=== PATIENT | male | born 1960 | race Native Hawaiian/Other Pacific Islander ===

== ENCOUNTER 2017-06-26 15:30 | Inpatient (IN) | payer OTHER ==
[~2017-06-26] VITALS: Ht 162.6 cm; Wt 69.4 kg
[2017-06-26 15:45] VITALS: BP 145/81
[2017-06-26] MEDS ORDERED: ACETAMINOPHEN 325 MG TABLET PO PRN (16:15)
[2017-06-26] MEDS ORDERED: METHOCARBAMOL 500 MG TABLET PO PRN (16:15)
[2017-06-26] MEDS ORDERED: TEMAZEPAM 15 MG CAPSULE PO PRN (16:15)
[2017-06-26 16:20] VITALS: BP 145/91
[2017-06-26] MEDS ORDERED: INFLUENZA VIRUS VACCINE QVS 2017-18 (3YR+)/PF 60 MCG/0.5 ML SYRINGE IM ONE (16:45)
[2017-06-26] MEDS: INSULIN ASPART 100 UNITS/ML SQ SCH (18:05)
[2017-06-26 18:17] LABS: GLUCOSE,POINT OF CARE 135 MG/DL (70-110)
[2017-06-26] MEDS: SENNA 187 MG TABLET PO SCH (20:12)
[2017-06-26] MEDS: DOCUSATE SODIUM 100 MG CAPSULE PO SCH (20:12)
[2017-06-26 22:45] LABS: APPEARANCE,URINE CLOUDY (CLEAR); GLUCOSE, URINE (UA) NEGATIVE (NEGATIVE); KETONES,URINE NEGATIVE (NEGATIVE); LEUKOCYTE ESTERASE ,URINE NEGATIVE (NEGATIVE); OCCULT BLOOD,URINE NEGATIVE (NEGATIVE); PH,URINE 6.5 (5.0-8.0); PROTEIN,URINE NEGATIVE (NEGATIVE)
[2017-06-26 22:50] LABS: SQUAMOUS EPITHELIAL CELL,UR Few /LPF (None Seen)
[2017-06-26 22:51] LABS: RBC,URINE 0-2 /HPF (0-2)
[2017-06-26 23:30] VITALS: BP 128/76
[2017-06-27 03:42] LABS: GLUCOSE,POINT OF CARE 169 MG/DL (70-110)
[2017-06-27 05:58] LABS: GLUCOSE,POINT OF CARE 109 MG/DL (70-110)
[2017-06-27 06:15] LABS: BASOPHILS # (AUTO) 0.05 K/uL (0.00-0.20); BASOPHILS % (AUTO) 0.5 % (0.0-2.0); EOSINOPHILS # (AUTO) 0.33 K/uL (0.00-0.70); EOSINOPHILS % (AUTO) 3.33 % (1.0-6.0); HEMATOCRIT 42.1 % (41-53); HEMOGLOBIN 14.6 g/dL (13.5-17.5); LYMPHOCYTES # (AUTO) 2.8 K/uL (1.0-4.8); LYMPHOCYTES % (AUTO) 28.8 % (22.0-44.0); MEAN CORPUSCULAR HEMOGLOBIN 29.8 pg (26.0-34.0); MEAN CORPUSCULAR HGB CONC 34.6 G/dL (31.0-37.0); MEAN CORPUSCULAR VOLUME 86 fL (80-100); MONOCYTES # (AUTO) 0.7 K/uL (0.1-1.0); MONOCYTES % (AUTO) 7.6 % (2.0-9.0); NEUTROPHILS # (AUTO) 5.9 K/uL (1.8-7.7); NEUTROPHILS % (AUTO) 59.8 % (40.0-70.0); PLATELET COUNT (AUTO) 253 K/uL (150-450); RED BLOOD CELL COUNT(AUTO) 4.88 MIL/uL (4.50-5.90); RED CELL DISTRIBUTION WIDTH 13.3 % (11.5-14.5); WHITE BLOOD COUNT (AUTO) 9.8 K/uL (4.5-11.0)
[2017-06-27 06:33] LABS: ALANINE AMINOTRANSFERASE 43 U/L (12-78); ALBUMIN 3.3 g/dL (3.4-5.0); ANION GAP 8 mmol/L (8-16); ASPARTATE AMINOTRANSFERASE 23 U/L (15-37); BILIRUBIN,TOTAL 0.6 mg/dL (0.1-1.0); CALCIUM, TOTAL 8.8 mg/dL (8.8-10.5); CARBON DIOXIDE 26 mmol/L (22-29); CHLORIDE 104 mmol/L (98-107); CREATININE 0.88 mg/dL (0.60-1.30); GLOMERULAR FILTR. RATE CALC > 60 mL/min (>60); POTASSIUM 3.7 mmol/L (3.5-5.1); SODIUM SERUM 138 mmol/L (136-145); UREA NITROGEN, BLOOD 19 mg/dL (7-18)
[2017-06-27] MEDS: INSULIN ASPART 100 UNITS/ML SQ SCH ×3 (07:00→17:19)
[2017-06-27 08:25] VITALS: BP 127/73
[2017-06-27] MEDS: LOSARTAN POTASSIUM 25 MG TABLET PO SCH (09:37)
[2017-06-27] MEDS: ATORVASTATIN CALCIUM 40 MG TABLET PO SCH (09:37)
[2017-06-27] MEDS: CLOPIDOGREL BISULFATE 75 MG TABLET PO SCH (09:37)
[2017-06-27] MEDS: NORTRIPTYLINE HCL 25 MG CAPSULE PO SCH (09:37)
[2017-06-27] MEDS: OMEGA-3/DHA/EPA/FISH OIL 500 MG CAPSULE PO SCH (09:37)
[2017-06-27] MEDS: ASPIRIN 81 MG CHEWABLE TABLET PO SCH (09:38)
[2017-06-27] MEDS: DOCUSATE SODIUM 100 MG CAPSULE PO SCH ×2 (09:38→20:48)
[2017-06-27] MEDS: INSULIN DETEMIR 100 UNITS/ML SQ SCH (10:39)
[2017-06-27 11:20] VITALS: BP 129/84
[2017-06-27] MEDS: ACETAMINOPHEN 325 MG TABLET PO PRN (13:24)
[2017-06-27 15:35] VITALS: BP 128/76
[2017-06-27 17:38] LABS: GLUCOSE COMMENT 1 Received Meds; GLUCOSE,POINT OF CARE 217 MG/DL (70-110)
[2017-06-27 17:42] LABS: GLUCOSE,POINT OF CARE 191 MG/DL (70-110)
[2017-06-27] MEDS: SENNA 187 MG TABLET PO SCH (20:48)
[2017-06-27 21:37] LABS: GLUCOSE,POINT OF CARE 148 MG/DL (70-110)
[2017-06-28 05:41] LABS: GLUCOSE,POINT OF CARE 165 MG/DL (70-110)
[2017-06-28 06:00] VITALS: BP 122/76
[2017-06-28 08:14] VITALS: BP 136/81
[2017-06-28] MEDS: LOSARTAN POTASSIUM 25 MG TABLET PO SCH (08:29)
[2017-06-28] MEDS: OMEGA-3/DHA/EPA/FISH OIL 500 MG CAPSULE PO SCH (08:29)
[2017-06-28] MEDS: ATORVASTATIN CALCIUM 40 MG TABLET PO SCH (08:29)
[2017-06-28] MEDS: CLOPIDOGREL BISULFATE 75 MG TABLET PO SCH (08:29)
[2017-06-28] MEDS: DOCUSATE SODIUM 100 MG CAPSULE PO SCH ×2 (08:29→20:10)
[2017-06-28] MEDS: ASPIRIN 81 MG CHEWABLE TABLET PO SCH (08:29)
[2017-06-28] MEDS: ENOXAPARIN SODIUM 40 MG/0.4 ML PF SYRINGE SQ SCH (08:30)
[2017-06-28] MEDS: ESOMEPRAZOLE MAG TRIHYDRATE 20 MG CAPSULE PO SCH (08:31)
[2017-06-28] MEDS: NORTRIPTYLINE HCL 25 MG CAPSULE PO SCH ×3 (08:31→20:18)
[2017-06-28] MEDS: INSULIN DETEMIR 100 UNITS/ML SQ SCH (08:35)
[2017-06-28] MEDS: INSULIN ASPART 100 UNITS/ML SQ SCH ×3 (08:35→18:03)
[2017-06-28] MEDS: ACETAMINOPHEN 325 MG TABLET PO PRN (09:13)
[2017-06-28 13:27] LABS: GLUCOSE,POINT OF CARE 106 MG/DL (70-110)
[2017-06-28 16:08] VITALS: BP 115/77
[2017-06-28 18:17] LABS: GLUCOSE COMMENT 1 Received Meds; GLUCOSE,POINT OF CARE 150 MG/DL (70-110)
[2017-06-28] MEDS: SENNA 187 MG TABLET PO SCH (20:10)
[2017-06-28 22:32] LABS: GLUCOSE COMMENT 1 Received Meds; GLUCOSE,POINT OF CARE 155 MG/DL (70-110)
[2017-06-29 00:36] VITALS: BP 111/66
[2017-06-29 06:07] LABS: GLUCOSE,POINT OF CARE 123 MG/DL (70-110)
[2017-06-29 07:17] VITALS: BP 119/70
[2017-06-29] MEDS: ASPIRIN 81 MG CHEWABLE TABLET PO SCH (08:06)
[2017-06-29] MEDS: ESOMEPRAZOLE MAG TRIHYDRATE 20 MG CAPSULE PO SCH (08:06)
[2017-06-29] MEDS: OMEGA-3/DHA/EPA/FISH OIL 500 MG CAPSULE PO SCH (08:07)
[2017-06-29] MEDS: DOCUSATE SODIUM 100 MG CAPSULE PO SCH (08:07)
[2017-06-29] MEDS: CLOPIDOGREL BISULFATE 75 MG TABLET PO SCH (08:07)
[2017-06-29] MEDS: ENOXAPARIN SODIUM 40 MG/0.4 ML PF SYRINGE SQ SCH (08:07)
[2017-06-29] MEDS: LOSARTAN POTASSIUM 25 MG TABLET PO SCH (08:07)
[2017-06-29] MEDS: ATORVASTATIN CALCIUM 40 MG TABLET PO SCH (08:07)
[2017-06-29] MEDS: INSULIN ASPART 100 UNITS/ML SQ SCH ×3 (08:08→17:43)
[2017-06-29] MEDS: INSULIN DETEMIR 100 UNITS/ML SQ SCH (08:09)
[2017-06-29 12:37] LABS: GLUCOSE COMMENT 1 Repeated; GLUCOSE COMMENT 2 Received Meds; GLUCOSE,POINT OF CARE 213 MG/DL (70-110)
[2017-06-29 15:16] VITALS: BP 130/82
[2017-06-29 16:43] LABS: GLUCOSE COMMENT 1 Received Meds; GLUCOSE,POINT OF CARE 203 MG/DL (70-110)
[2017-06-29 17:37] LABS: GLUCOSE,POINT OF CARE 188 MG/DL (70-110)
[2017-06-29] MEDS: DOCUSATE SODIUM 283 MG/5 ML MINI-ENEMA PR PRN (20:01)
[2017-06-29] MEDS: SENNA 187 MG TABLET PO SCH (20:39)
[2017-06-29] MEDS: DOCUSATE SODIUM 250 MG CAPSULE PO SCH (20:39)
[2017-06-29] MEDS: NORTRIPTYLINE HCL 25 MG CAPSULE PO SCH (20:40)
[2017-06-29 21:52] LABS: GLUCOSE,POINT OF CARE 187 MG/DL (70-110)
[2017-06-30 00:33] VITALS: BP 132/81
[2017-06-30 07:39] VITALS: BP 107/76
[2017-06-30] MEDS: INSULIN ASPART 100 UNITS/ML SQ SCH ×3 (07:47→17:04)
[2017-06-30] MEDS: ASPIRIN 81 MG CHEWABLE TABLET PO SCH (08:05)
[2017-06-30] MEDS: LOSARTAN POTASSIUM 25 MG TABLET PO SCH (08:05)
[2017-06-30] MEDS: ATORVASTATIN CALCIUM 40 MG TABLET PO SCH (08:05)
[2017-06-30] MEDS: ESOMEPRAZOLE MAG TRIHYDRATE 20 MG CAPSULE PO SCH (08:05)
[2017-06-30] MEDS: OMEGA-3/DHA/EPA/FISH OIL 500 MG CAPSULE PO SCH (08:05)
[2017-06-30] MEDS: CLOPIDOGREL BISULFATE 75 MG TABLET PO SCH (08:05)
[2017-06-30] MEDS: ENOXAPARIN SODIUM 40 MG/0.4 ML PF SYRINGE SQ SCH (08:05)
[2017-06-30] MEDS: DOCUSATE SODIUM 250 MG CAPSULE PO SCH ×2 (08:05→20:54)
[2017-06-30] MEDS: INSULIN DETEMIR 100 UNITS/ML SQ SCH (08:11)
[2017-06-30 12:48] LABS: GLUCOSE,POINT OF CARE 198 MG/DL (70-110)
[2017-06-30 12:48] LABS: GLUCOSE,POINT OF CARE 136 MG/DL (70-110)
[2017-06-30 15:07] VITALS: BP 112/73
[2017-06-30 17:03] LABS: GLUCOSE,POINT OF CARE 182 MG/DL (70-110)
[2017-06-30 20:05] VITALS: BP 112/73
[2017-06-30] MEDS: DOCUSATE SODIUM 283 MG/5 ML MINI-ENEMA PR PRN (20:54)
[2017-06-30] MEDS: SENNA 187 MG TABLET PO SCH (20:54)
[2017-06-30 21:43] LABS: GLUCOSE,POINT OF CARE 258 MG/DL (70-110)
[2017-07-01 05:54] VITALS: BP 114/85
[2017-07-01 06:03] LABS: GLUCOSE,POINT OF CARE 133 MG/DL (70-110)
[2017-07-01 07:55] VITALS: BP 131/81
[2017-07-01] MEDS: ESOMEPRAZOLE MAG TRIHYDRATE 20 MG CAPSULE PO SCH (08:06)
[2017-07-01] MEDS: CLOPIDOGREL BISULFATE 75 MG TABLET PO SCH (08:06)
[2017-07-01] MEDS: LOSARTAN POTASSIUM 25 MG TABLET PO SCH (08:06)
[2017-07-01] MEDS: ATORVASTATIN CALCIUM 40 MG TABLET PO SCH (08:06)
[2017-07-01] MEDS: OMEGA-3/DHA/EPA/FISH OIL 500 MG CAPSULE PO SCH (08:06)
[2017-07-01] MEDS: ASPIRIN 81 MG CHEWABLE TABLET PO SCH (08:06)
[2017-07-01] MEDS: DOCUSATE SODIUM 250 MG CAPSULE PO SCH ×2 (08:06→20:13)
[2017-07-01] MEDS: ENOXAPARIN SODIUM 40 MG/0.4 ML PF SYRINGE SQ SCH (08:11)
[2017-07-01] MEDS: INSULIN ASPART 100 UNITS/ML SQ SCH ×3 (08:16→17:08)
[2017-07-01] MEDS: INSULIN DETEMIR 100 UNITS/ML SQ SCH (08:16)
[2017-07-01 12:39] LABS: GLUCOSE COMMENT 1 Received Meds; GLUCOSE,POINT OF CARE 189 MG/DL (70-110)
[2017-07-01] MEDS ORDERED: AMLO-512 PO (14:02)
[2017-07-01] MEDS ORDERED: METO50 PO (14:02)
[2017-07-01] MEDS ORDERED: METF500T4 PO (14:02)
[2017-07-01] MEDS ORDERED: GLIP10 PO (14:02)
[2017-07-01] MEDS ORDERED: ATOR40TA28 PO (14:02)
[2017-07-01] MEDS ORDERED: HYDR25TA PO (14:02)
[2017-07-01] MEDS ORDERED: FISH1CAP50 PO (14:02)
[2017-07-01] MEDS ORDERED: LOSA50TA37 PO (14:02)
[2017-07-01 15:27] VITALS: BP 105/65
[2017-07-01 17:55] LABS: GLUCOSE,POINT OF CARE 143 MG/DL (70-110)
[2017-07-01] MEDS: DOCUSATE SODIUM 283 MG/5 ML MINI-ENEMA PR PRN (20:14)
[2017-07-01] MEDS: SENNA 187 MG TABLET PO SCH (20:14)
[2017-07-01 21:29] LABS: GLUCOSE,POINT OF CARE 125 MG/DL (70-110)
[2017-07-02 04:50] VITALS: BP 139/82
[2017-07-02 06:26] LABS: GLUCOSE,POINT OF CARE 147 MG/DL (70-110)
[2017-07-02 07:21] VITALS: BP 105/66
[2017-07-02] MEDS: INSULIN ASPART 100 UNITS/ML SQ SCH ×3 (07:35→17:51)
[2017-07-02] MEDS: ENOXAPARIN SODIUM 40 MG/0.4 ML PF SYRINGE SQ SCH (08:14)
[2017-07-02] MEDS: ASPIRIN 81 MG CHEWABLE TABLET PO SCH (08:14)
[2017-07-02] MEDS: OMEGA-3/DHA/EPA/FISH OIL 500 MG CAPSULE PO SCH (08:14)
[2017-07-02] MEDS: DOCUSATE SODIUM 250 MG CAPSULE PO SCH ×2 (08:14→20:15)
[2017-07-02] MEDS: ESOMEPRAZOLE MAG TRIHYDRATE 20 MG CAPSULE PO SCH (08:14)
[2017-07-02] MEDS: LOSARTAN POTASSIUM 25 MG TABLET PO SCH (08:15)
[2017-07-02] MEDS: CLOPIDOGREL BISULFATE 75 MG TABLET PO SCH (08:15)
[2017-07-02] MEDS: ATORVASTATIN CALCIUM 40 MG TABLET PO SCH (08:15)
[2017-07-02] MEDS: INSULIN DETEMIR 100 UNITS/ML SQ SCH (08:20)
[2017-07-02 12:09] LABS: GLUCOSE,POINT OF CARE 177 MG/DL (70-110)
[2017-07-02 15:55] VITALS: BP 128/88
[2017-07-02 18:03] LABS: GLUCOSE,POINT OF CARE 116 MG/DL (70-110)
[2017-07-02] MEDS: SENNA 187 MG TABLET PO SCH (20:15)
[2017-07-03] VITALS: BP 125/75
[2017-07-03 03:33] LABS: GLUCOSE,POINT OF CARE 157 MG/DL (70-110)
[2017-07-03 06:08] LABS: GLUCOSE,POINT OF CARE 123 MG/DL (70-110)
[2017-07-03 07:05] VITALS: BP 132/81
[2017-07-03] MEDS: INSULIN ASPART 100 UNITS/ML SQ SCH ×3 (08:30→18:04)
[2017-07-03] MEDS: DOCUSATE SODIUM 250 MG CAPSULE PO SCH ×2 (08:30→21:05)
[2017-07-03] MEDS: ASPIRIN 81 MG CHEWABLE TABLET PO SCH (08:30)
[2017-07-03] MEDS: ENOXAPARIN SODIUM 40 MG/0.4 ML PF SYRINGE SQ SCH (08:31)
[2017-07-03] MEDS: OMEGA-3/DHA/EPA/FISH OIL 500 MG CAPSULE PO SCH (08:31)
[2017-07-03] MEDS: CLOPIDOGREL BISULFATE 75 MG TABLET PO SCH (08:31)
[2017-07-03] MEDS: LOSARTAN POTASSIUM 25 MG TABLET PO SCH (08:31)
[2017-07-03] MEDS: ESOMEPRAZOLE MAG TRIHYDRATE 20 MG CAPSULE PO SCH (08:31)
[2017-07-03] MEDS: ATORVASTATIN CALCIUM 40 MG TABLET PO SCH (08:31)
[2017-07-03] MEDS: INSULIN DETEMIR 100 UNITS/ML SQ SCH (08:39)
[2017-07-03 16:35] VITALS: BP 105/54
[2017-07-03] MEDS: SENNA 187 MG TABLET PO SCH ×3 (21:05→21:41)
[2017-07-03 23:28] VITALS: BP 117/80
[2017-07-04 06:13] LABS: GLUCOSE,POINT OF CARE 142 MG/DL (70-110)
[2017-07-04 07:18] VITALS: BP 126/95
[2017-07-04] MEDS: ESOMEPRAZOLE MAG TRIHYDRATE 20 MG CAPSULE PO SCH (07:44)
[2017-07-04] MEDS: OMEGA-3/DHA/EPA/FISH OIL 500 MG CAPSULE PO SCH (07:44)
[2017-07-04] MEDS: LOSARTAN POTASSIUM 25 MG TABLET PO SCH (07:45)
[2017-07-04] MEDS: CLOPIDOGREL BISULFATE 75 MG TABLET PO SCH (07:45)
[2017-07-04] MEDS: DOCUSATE SODIUM 250 MG CAPSULE PO SCH ×2 (07:45→20:43)
[2017-07-04] MEDS: ATORVASTATIN CALCIUM 40 MG TABLET PO SCH (07:45)
[2017-07-04] MEDS: ENOXAPARIN SODIUM 40 MG/0.4 ML PF SYRINGE SQ SCH (07:46)
[2017-07-04] MEDS: ASPIRIN 81 MG CHEWABLE TABLET PO SCH (07:47)
[2017-07-04] MEDS: INSULIN ASPART 100 UNITS/ML SQ SCH ×3 (07:51→17:31)
[2017-07-04] MEDS: INSULIN DETEMIR 100 UNITS/ML SQ SCH (07:51)
[2017-07-04 15:32] VITALS: BP 110/70
[2017-07-04 17:42] LABS: GLUCOSE COMMENT 1 Received Meds; GLUCOSE,POINT OF CARE 173 MG/DL (70-110)
[2017-07-04] MEDS: SENNA 187 MG TABLET PO SCH (20:43)
[2017-07-04 22:32] LABS: GLUCOSE,POINT OF CARE 146 MG/DL (70-110)
[2017-07-05] VITALS: BP 114/75
[2017-07-05 05:13] LABS: GLUCOSE,POINT OF CARE 94 MG/DL (70-110)
[2017-07-05 05:13] LABS: GLUCOSE,POINT OF CARE 118 MG/DL (70-110)
[2017-07-05 05:13] LABS: GLUCOSE,POINT OF CARE 163 MG/DL (70-110)
[2017-07-05 05:13] LABS: GLUCOSE,POINT OF CARE 179 MG/DL (70-110)
[2017-07-05 06:18] LABS: GLUCOSE,POINT OF CARE 147 MG/DL (70-110)
[2017-07-05 07:37] VITALS: BP 104/79
[2017-07-05] MEDS: INSULIN ASPART 100 UNITS/ML SQ SCH ×3 (07:42→21:23)
[2017-07-05] MEDS: ESOMEPRAZOLE MAG TRIHYDRATE 20 MG CAPSULE PO SCH (08:21)
[2017-07-05] MEDS: ASPIRIN 81 MG CHEWABLE TABLET PO SCH (08:21)
[2017-07-05] MEDS: ATORVASTATIN CALCIUM 40 MG TABLET PO SCH (08:21)
[2017-07-05] MEDS: LOSARTAN POTASSIUM 25 MG TABLET PO SCH (08:21)
[2017-07-05] MEDS: ENOXAPARIN SODIUM 40 MG/0.4 ML PF SYRINGE SQ SCH (08:21)
[2017-07-05] MEDS: OMEGA-3/DHA/EPA/FISH OIL 500 MG CAPSULE PO SCH (08:21)
[2017-07-05] MEDS: CLOPIDOGREL BISULFATE 75 MG TABLET PO SCH (08:21)
[2017-07-05] MEDS: DOCUSATE SODIUM 250 MG CAPSULE PO SCH ×2 (08:21→21:26)
[2017-07-05] MEDS: INSULIN DETEMIR 100 UNITS/ML SQ SCH (08:26)
[2017-07-05 12:43] LABS: GLUCOSE,POINT OF CARE 157 MG/DL (70-110)
[2017-07-05 15:00] VITALS: BP 124/76
[2017-07-05 18:23] LABS: GLUCOSE,POINT OF CARE 128 MG/DL (70-110)
[2017-07-05] MEDS: SENNA 187 MG TABLET PO SCH (21:26)
[2017-07-05 22:08] LABS: GLUCOSE,POINT OF CARE 106 MG/DL (70-110)
[2017-07-05 23:12] VITALS: BP 120/77
[2017-07-06 06:40] LABS: GLUCOSE,POINT OF CARE 135 MG/DL (70-110)
[2017-07-06] MEDS: ATORVASTATIN CALCIUM 40 MG TABLET PO SCH (07:51)
[2017-07-06] MEDS: DOCUSATE SODIUM 250 MG CAPSULE PO SCH ×2 (07:51→20:18)
[2017-07-06] MEDS: CLOPIDOGREL BISULFATE 75 MG TABLET PO SCH (07:51)
[2017-07-06] MEDS: LOSARTAN POTASSIUM 25 MG TABLET PO SCH (07:51)
[2017-07-06] MEDS: ASPIRIN 81 MG CHEWABLE TABLET PO SCH (07:51)
[2017-07-06] MEDS: ESOMEPRAZOLE MAG TRIHYDRATE 20 MG CAPSULE PO SCH (07:51)
[2017-07-06] MEDS: OMEGA-3/DHA/EPA/FISH OIL 500 MG CAPSULE PO SCH (07:51)
[2017-07-06] MEDS: ENOXAPARIN SODIUM 40 MG/0.4 ML PF SYRINGE SQ SCH (07:51)
[2017-07-06] MEDS: INSULIN ASPART 100 UNITS/ML SQ SCH ×3 (07:58→17:05)
[2017-07-06] MEDS: INSULIN DETEMIR 100 UNITS/ML SQ SCH (07:58)
[2017-07-06 08:00] VITALS: BP 112/80
[2017-07-06] MEDS ORDERED: MECLIZINE HCL 12.5 MG TABLET PO PRN (12:00)
[2017-07-06 15:24] VITALS: BP 103/70
[2017-07-06 17:12] LABS: GLUCOSE,POINT OF CARE 138 MG/DL (70-110)
[2017-07-06 17:13] LABS: GLUCOSE,POINT OF CARE 254 MG/DL (70-110)
[2017-07-06] MEDS: SENNA 187 MG TABLET PO SCH (20:18)
[2017-07-06 21:32] LABS: GLUCOSE,POINT OF CARE 186 MG/DL (70-110)
[2017-07-07 00:35] VITALS: BP 105/59
[2017-07-07 05:58] LABS: GLUCOSE,POINT OF CARE 148 MG/DL (70-110)
[2017-07-07 07:20] VITALS: BP 114/67
[2017-07-07] MEDS: LOSARTAN POTASSIUM 25 MG TABLET PO SCH (08:46)
[2017-07-07] MEDS: ESOMEPRAZOLE MAG TRIHYDRATE 20 MG CAPSULE PO SCH (08:46)
[2017-07-07] MEDS: ASPIRIN 81 MG CHEWABLE TABLET PO SCH (08:46)
[2017-07-07] MEDS: CLOPIDOGREL BISULFATE 75 MG TABLET PO SCH (08:46)
[2017-07-07] MEDS: DOCUSATE SODIUM 250 MG CAPSULE PO SCH ×2 (08:46→20:01)
[2017-07-07] MEDS: ATORVASTATIN CALCIUM 40 MG TABLET PO SCH (08:46)
[2017-07-07] MEDS: OMEGA-3/DHA/EPA/FISH OIL 500 MG CAPSULE PO SCH (08:46)
[2017-07-07] MEDS: ENOXAPARIN SODIUM 40 MG/0.4 ML PF SYRINGE SQ SCH (08:47)
[2017-07-07] MEDS: INSULIN DETEMIR 100 UNITS/ML SQ SCH (08:54)
[2017-07-07] MEDS: INSULIN ASPART 100 UNITS/ML SQ SCH ×3 (08:54→17:36)
[2017-07-07 12:10] LABS: GLUCOSE COMMENT 1 Received Meds; GLUCOSE,POINT OF CARE 273 MG/DL (70-110)
[2017-07-07 15:22] VITALS: BP_SYST 110; BP_SYST 136; BP_DIAS 57; BP_DIAS 73
[2017-07-07] MEDS: SENNA 187 MG TABLET PO SCH (20:01)
[2017-07-07 23:34] VITALS: BP 112/69
[2017-07-08 05:53] LABS: GLUCOSE,POINT OF CARE 112 MG/DL (70-110)
[2017-07-08 05:53] LABS: GLUCOSE,POINT OF CARE 125 MG/DL (70-110)
[2017-07-08 05:53] LABS: GLUCOSE,POINT OF CARE 209 MG/DL (70-110)
[2017-07-08 07:02] VITALS: BP 119/74
[2017-07-08] MEDS: INSULIN ASPART 100 UNITS/ML SQ SCH ×3 (08:36→17:22)
[2017-07-08] MEDS: ASPIRIN 81 MG CHEWABLE TABLET PO SCH (09:08)
[2017-07-08] MEDS: ATORVASTATIN CALCIUM 40 MG TABLET PO SCH (09:08)
[2017-07-08] MEDS: CLOPIDOGREL BISULFATE 75 MG TABLET PO SCH (09:08)
[2017-07-08] MEDS: DOCUSATE SODIUM 250 MG CAPSULE PO SCH ×2 (09:08→20:10)
[2017-07-08] MEDS: ESOMEPRAZOLE MAG TRIHYDRATE 20 MG CAPSULE PO SCH (09:08)
[2017-07-08] MEDS: LOSARTAN POTASSIUM 25 MG TABLET PO SCH (09:09)
[2017-07-08] MEDS: ENOXAPARIN SODIUM 40 MG/0.4 ML PF SYRINGE SQ SCH (09:09)
[2017-07-08] MEDS: OMEGA-3/DHA/EPA/FISH OIL 500 MG CAPSULE PO SCH (09:09)
[2017-07-08] MEDS: INSULIN DETEMIR 100 UNITS/ML SQ SCH (09:18)
[2017-07-08 16:40] VITALS: BP 111/68
[2017-07-08] MEDS: SENNA 187 MG TABLET PO SCH (20:10)
[2017-07-08 21:43] LABS: GLUCOSE COMMENT 1 Received Meds; GLUCOSE,POINT OF CARE 225 MG/DL (70-110)
[2017-07-08 23:13] LABS: GLUCOSE,POINT OF CARE 99 MG/DL (70-110)
[2017-07-08 23:13] LABS: GLUCOSE,POINT OF CARE 164 MG/DL (70-110)
[2017-07-09] VITALS: BP 106/68
[2017-07-09 06:02] LABS: GLUCOSE,POINT OF CARE 117 MG/DL (70-110)
[2017-07-09 07:15] VITALS: BP 101/67
[2017-07-09] MEDS: INSULIN ASPART 100 UNITS/ML SQ SCH ×3 (08:08→16:53)
[2017-07-09 09:00] VITALS: BP 119/87
[2017-07-09] MEDS: ENOXAPARIN SODIUM 40 MG/0.4 ML PF SYRINGE SQ SCH (09:08)
[2017-07-09] MEDS: ESOMEPRAZOLE MAG TRIHYDRATE 20 MG CAPSULE PO SCH (09:09)
[2017-07-09] MEDS: OMEGA-3/DHA/EPA/FISH OIL 500 MG CAPSULE PO SCH (09:09)
[2017-07-09] MEDS: DOCUSATE SODIUM 250 MG CAPSULE PO SCH ×2 (09:09→20:17)
[2017-07-09] MEDS: ASPIRIN 81 MG CHEWABLE TABLET PO SCH (09:10)
[2017-07-09] MEDS: CLOPIDOGREL BISULFATE 75 MG TABLET PO SCH (09:10)
[2017-07-09] MEDS: ATORVASTATIN CALCIUM 40 MG TABLET PO SCH (09:19)
[2017-07-09] MEDS: LOSARTAN POTASSIUM 25 MG TABLET PO SCH (09:21)
[2017-07-09] MEDS: INSULIN DETEMIR 100 UNITS/ML SQ SCH (09:25)
[2017-07-09 13:13] LABS: GLUCOSE,POINT OF CARE 107 MG/DL (70-110)
[2017-07-09 15:38] VITALS: BP 116/73
[2017-07-09 17:12] LABS: GLUCOSE,POINT OF CARE 146 MG/DL (70-110)
[2017-07-09] MEDS: SENNA 187 MG TABLET PO SCH (20:17)
[2017-07-09 21:38] LABS: GLUCOSE,POINT OF CARE 180 MG/DL (70-110)
[2017-07-09 23:55] VITALS: BP 119/68
[2017-07-10 06:03] LABS: GLUCOSE,POINT OF CARE 141 MG/DL (70-110)
[2017-07-10 07:30] VITALS: BP 118/75
[2017-07-10] MEDS: INSULIN ASPART 100 UNITS/ML SQ SCH ×3 (07:43→18:01)
[2017-07-10] MEDS: CLOPIDOGREL BISULFATE 75 MG TABLET PO SCH (08:19)
[2017-07-10] MEDS: DOCUSATE SODIUM 250 MG CAPSULE PO SCH ×2 (08:19→20:56)
[2017-07-10] MEDS: ENOXAPARIN SODIUM 40 MG/0.4 ML PF SYRINGE SQ SCH (08:19)
[2017-07-10] MEDS: OMEGA-3/DHA/EPA/FISH OIL 500 MG CAPSULE PO SCH (08:19)
[2017-07-10] MEDS: LOSARTAN POTASSIUM 25 MG TABLET PO SCH (08:19)
[2017-07-10] MEDS: ASPIRIN 81 MG CHEWABLE TABLET PO SCH (08:20)
[2017-07-10] MEDS: ESOMEPRAZOLE MAG TRIHYDRATE 20 MG CAPSULE PO SCH (08:20)
[2017-07-10] MEDS: ATORVASTATIN CALCIUM 40 MG TABLET PO SCH (08:21)
[2017-07-10] MEDS: INSULIN DETEMIR 100 UNITS/ML SQ SCH (09:14)
[2017-07-10 11:33] LABS: GLUCOSE COMMENT 1 Received Meds; GLUCOSE,POINT OF CARE 179 MG/DL (70-110)
[2017-07-10 15:51] VITALS: BP 141/75
[2017-07-10 17:28] LABS: GLUCOSE,POINT OF CARE 111 MG/DL (70-110)
[2017-07-10] MEDS: SENNA 187 MG TABLET PO SCH (20:56)
[2017-07-10 23:03] LABS: GLUCOSE,POINT OF CARE 146 MG/DL (70-110)
[2017-07-10 23:55] VITALS: BP 91/58
[2017-07-11 06:08] LABS: GLUCOSE,POINT OF CARE 116 MG/DL (70-110)
[2017-07-11 06:21] VITALS: BP 96/63
[2017-07-11 07:30] VITALS: BP 115/72
[2017-07-11] MEDS: INSULIN ASPART 100 UNITS/ML SQ SCH ×3 (07:59→17:30)
[2017-07-11] MEDS: ENOXAPARIN SODIUM 40 MG/0.4 ML PF SYRINGE SQ SCH (09:18)
[2017-07-11] MEDS: OMEGA-3/DHA/EPA/FISH OIL 500 MG CAPSULE PO SCH (09:19)
[2017-07-11] MEDS: DOCUSATE SODIUM 250 MG CAPSULE PO SCH ×2 (09:19→21:05)
[2017-07-11] MEDS: ASPIRIN 81 MG CHEWABLE TABLET PO SCH (09:19)
[2017-07-11] MEDS: CLOPIDOGREL BISULFATE 75 MG TABLET PO SCH (09:19)
[2017-07-11] MEDS: LOSARTAN POTASSIUM 25 MG TABLET PO SCH (09:19)
[2017-07-11] MEDS: ESOMEPRAZOLE MAG TRIHYDRATE 20 MG CAPSULE PO SCH (09:19)
[2017-07-11] MEDS: ATORVASTATIN CALCIUM 40 MG TABLET PO SCH (09:19)
[2017-07-11] MEDS: INSULIN DETEMIR 100 UNITS/ML SQ SCH (09:23)
[2017-07-11 11:17] LABS: GLUCOSE,POINT OF CARE 167 MG/DL (70-110)
[2017-07-11 15:48] VITALS: BP 118/73
[2017-07-11 17:13] LABS: GLUCOSE,POINT OF CARE 117 MG/DL (70-110)
[2017-07-11] MEDS: SENNA 187 MG TABLET PO SCH (21:05)
[2017-07-11 21:32] LABS: GLUCOSE,POINT OF CARE 127 MG/DL (70-110)
[2017-07-11 23:56] VITALS: BP 126/76
[2017-07-12 06:03] LABS: GLUCOSE,POINT OF CARE 131 MG/DL (70-110)
[2017-07-12 07:03] VITALS: BP 131/75
[2017-07-12] MEDS: INSULIN ASPART 100 UNITS/ML SQ SCH ×3 (08:03→18:29)
[2017-07-12] MEDS: OMEGA-3/DHA/EPA/FISH OIL 500 MG CAPSULE PO SCH (08:24)
[2017-07-12] MEDS: ESOMEPRAZOLE MAG TRIHYDRATE 20 MG CAPSULE PO SCH (08:24)
[2017-07-12] MEDS: ATORVASTATIN CALCIUM 40 MG TABLET PO SCH (08:27)
[2017-07-12] MEDS: CLOPIDOGREL BISULFATE 75 MG TABLET PO SCH (08:28)
[2017-07-12] MEDS: ASPIRIN 81 MG CHEWABLE TABLET PO SCH (08:28)
[2017-07-12] MEDS: DOCUSATE SODIUM 250 MG CAPSULE PO SCH ×2 (08:28→20:48)
[2017-07-12] MEDS: ENOXAPARIN SODIUM 40 MG/0.4 ML PF SYRINGE SQ SCH (08:28)
[2017-07-12] MEDS: LOSARTAN POTASSIUM 25 MG TABLET PO SCH (08:28)
[2017-07-12] MEDS: INSULIN DETEMIR 100 UNITS/ML SQ SCH (08:35)
[2017-07-12 12:43] LABS: GLUCOSE COMMENT 1 Received Meds; GLUCOSE,POINT OF CARE 193 MG/DL (70-110)
[2017-07-12 15:45] VITALS: BP 99/69
[2017-07-12 17:37] LABS: GLUCOSE,POINT OF CARE 138 MG/DL (70-110)
[2017-07-12] MEDS: SENNA 187 MG TABLET PO SCH (20:48)
[2017-07-12 22:18] LABS: GLUCOSE,POINT OF CARE 176 MG/DL (70-110)
[2017-07-12 23:26] VITALS: BP 111/68
[2017-07-13 05:58] LABS: GLUCOSE,POINT OF CARE 123 MG/DL (70-110)
[2017-07-13 07:18] VITALS: BP 110/73
[2017-07-13] MEDS: INSULIN ASPART 100 UNITS/ML SQ SCH ×3 (07:46→17:52)
[2017-07-13] MEDS: ESOMEPRAZOLE MAG TRIHYDRATE 20 MG CAPSULE PO SCH (09:09)
[2017-07-13] MEDS: CLOPIDOGREL BISULFATE 75 MG TABLET PO SCH (09:10)
[2017-07-13] MEDS: OMEGA-3/DHA/EPA/FISH OIL 500 MG CAPSULE PO SCH (09:10)
[2017-07-13] MEDS: ATORVASTATIN CALCIUM 40 MG TABLET PO SCH (09:10)
[2017-07-13] MEDS: DOCUSATE SODIUM 250 MG CAPSULE PO SCH ×2 (09:10→20:29)
[2017-07-13] MEDS: LOSARTAN POTASSIUM 25 MG TABLET PO SCH (09:10)
[2017-07-13] MEDS: ASPIRIN 81 MG CHEWABLE TABLET PO SCH (09:10)
[2017-07-13] MEDS: ENOXAPARIN SODIUM 40 MG/0.4 ML PF SYRINGE SQ SCH (09:10)
[2017-07-13] MEDS: INSULIN DETEMIR 100 UNITS/ML SQ SCH (09:11)
[2017-07-13 12:13] LABS: GLUCOSE,POINT OF CARE 181 MG/DL (70-110)
[2017-07-13 15:16] VITALS: BP 103/77
[2017-07-13 19:22] LABS: GLUCOSE COMMENT 1 Received Meds; GLUCOSE,POINT OF CARE 142 MG/DL (70-110)
[2017-07-13] MEDS: DOCUSATE SODIUM 283 MG/5 ML MINI-ENEMA PR PRN (19:43)
[2017-07-13] MEDS: SENNA 187 MG TABLET PO SCH (20:28)
[2017-07-13 22:37] LABS: GLUCOSE,POINT OF CARE 222 MG/DL (70-110)
[2017-07-14 00:49] VITALS: BP 98/59
[2017-07-14 05:53] LABS: GLUCOSE,POINT OF CARE 111 MG/DL (70-110)
[2017-07-14 07:09] VITALS: BP 104/64
[2017-07-14] MEDS: INSULIN ASPART 100 UNITS/ML SQ SCH ×3 (07:19→17:29)
[2017-07-14] MEDS: ENOXAPARIN SODIUM 40 MG/0.4 ML PF SYRINGE SQ SCH (08:10)
[2017-07-14] MEDS: ESOMEPRAZOLE MAG TRIHYDRATE 20 MG CAPSULE PO SCH (08:11)
[2017-07-14] MEDS: LOSARTAN POTASSIUM 25 MG TABLET PO SCH (08:11)
[2017-07-14] MEDS: OMEGA-3/DHA/EPA/FISH OIL 500 MG CAPSULE PO SCH (08:11)
[2017-07-14] MEDS: CLOPIDOGREL BISULFATE 75 MG TABLET PO SCH (08:11)
[2017-07-14] MEDS: ASPIRIN 81 MG CHEWABLE TABLET PO SCH (08:11)
[2017-07-14] MEDS: ATORVASTATIN CALCIUM 40 MG TABLET PO SCH (08:11)
[2017-07-14] MEDS: DOCUSATE SODIUM 250 MG CAPSULE PO SCH ×2 (08:11→20:38)
[2017-07-14] MEDS: INSULIN DETEMIR 100 UNITS/ML SQ SCH (08:12)
[2017-07-14 12:12] LABS: GLUCOSE,POINT OF CARE 110 MG/DL (70-110)
[2017-07-14 15:11] VITALS: BP 99/63
[2017-07-14 17:42] LABS: GLUCOSE COMMENT 1 Received Meds; GLUCOSE,POINT OF CARE 95 MG/DL (70-110)
[2017-07-14] MEDS: SENNA 187 MG TABLET PO SCH (20:39)
[2017-07-14 23:46] VITALS: BP 116/73
[2017-07-15 06:28] LABS: GLUCOSE,POINT OF CARE 110 MG/DL (70-110)
[2017-07-15 07:20] VITALS: BP 106/72
[2017-07-15 07:22] LABS: GLUCOSE,POINT OF CARE 180 MG/DL (70-110)
[2017-07-15] MEDS: ASPIRIN 81 MG CHEWABLE TABLET PO SCH (07:55)
[2017-07-15] MEDS: OMEGA-3/DHA/EPA/FISH OIL 500 MG CAPSULE PO SCH (07:55)
[2017-07-15] MEDS: DOCUSATE SODIUM 250 MG CAPSULE PO SCH ×2 (07:55→21:44)
[2017-07-15] MEDS: ESOMEPRAZOLE MAG TRIHYDRATE 20 MG CAPSULE PO SCH (07:55)
[2017-07-15] MEDS: CLOPIDOGREL BISULFATE 75 MG TABLET PO SCH (07:56)
[2017-07-15] MEDS: ATORVASTATIN CALCIUM 40 MG TABLET PO SCH (07:56)
[2017-07-15] MEDS: LOSARTAN POTASSIUM 25 MG TABLET PO SCH (07:56)
[2017-07-15] MEDS: ENOXAPARIN SODIUM 40 MG/0.4 ML PF SYRINGE SQ SCH (07:56)
[2017-07-15] MEDS: INSULIN ASPART 100 UNITS/ML SQ SCH ×2 (08:02→16:30)
[2017-07-15] MEDS: INSULIN DETEMIR 100 UNITS/ML SQ SCH (08:02)
[2017-07-15 21:26] VITALS: BP 142/91
[2017-07-15 21:43] LABS: GLUCOSE COMMENT 1 Received Meds; GLUCOSE,POINT OF CARE 323 MG/DL (70-110)
[2017-07-15] MEDS: SENNA 187 MG TABLET PO SCH (21:44)
[2017-07-16 04:52] VITALS: BP 119/74
[2017-07-16 06:12] LABS: GLUCOSE,POINT OF CARE 111 MG/DL (70-110)
[2017-07-16 07:40] VITALS: BP 113/68
[2017-07-16] MEDS: INSULIN ASPART 100 UNITS/ML SQ SCH ×3 (08:13→17:31)
[2017-07-16] MEDS: ESOMEPRAZOLE MAG TRIHYDRATE 20 MG CAPSULE PO SCH (08:46)
[2017-07-16] MEDS: ATORVASTATIN CALCIUM 40 MG TABLET PO SCH (08:46)
[2017-07-16] MEDS: OMEGA-3/DHA/EPA/FISH OIL 500 MG CAPSULE PO SCH (08:46)
[2017-07-16] MEDS: CLOPIDOGREL BISULFATE 75 MG TABLET PO SCH (08:47)
[2017-07-16] MEDS: DOCUSATE SODIUM 250 MG CAPSULE PO SCH ×2 (08:47→21:39)
[2017-07-16] MEDS: ENOXAPARIN SODIUM 40 MG/0.4 ML PF SYRINGE SQ SCH (08:47)
[2017-07-16] MEDS: ASPIRIN 81 MG CHEWABLE TABLET PO SCH (08:47)
[2017-07-16] MEDS: LOSARTAN POTASSIUM 25 MG TABLET PO SCH (08:58)
[2017-07-16] MEDS: INSULIN DETEMIR 100 UNITS/ML SQ SCH (09:00)
[2017-07-16 12:27] LABS: GLUCOSE,POINT OF CARE 84 MG/DL (70-110)
[2017-07-16 16:10] VITALS: BP 133/81
[2017-07-16 17:22] LABS: GLUCOSE,POINT OF CARE 115 MG/DL (70-110)
[2017-07-16] MEDS: SENNA 187 MG TABLET PO SCH (21:39)
[2017-07-16 22:42] LABS: GLUCOSE,POINT OF CARE 128 MG/DL (70-110)
[2017-07-17 00:09] VITALS: BP 107/73
[2017-07-17 06:22] LABS: GLUCOSE,POINT OF CARE 115 MG/DL (70-110)
[2017-07-17 07:20] VITALS: BP 127/72
[2017-07-17] MEDS: OMEGA-3/DHA/EPA/FISH OIL 500 MG CAPSULE PO SCH (08:29)
[2017-07-17] MEDS: INSULIN ASPART 100 UNITS/ML SQ SCH ×3 (08:29→17:23)
[2017-07-17] MEDS: CLOPIDOGREL BISULFATE 75 MG TABLET PO SCH (08:30)
[2017-07-17] MEDS: LOSARTAN POTASSIUM 25 MG TABLET PO SCH (08:30)
[2017-07-17] MEDS: DOCUSATE SODIUM 250 MG CAPSULE PO SCH ×2 (08:30→20:17)
[2017-07-17] MEDS: ATORVASTATIN CALCIUM 40 MG TABLET PO SCH (08:30)
[2017-07-17] MEDS: ESOMEPRAZOLE MAG TRIHYDRATE 20 MG CAPSULE PO SCH (08:30)
[2017-07-17] MEDS: ASPIRIN 81 MG CHEWABLE TABLET PO SCH (08:30)
[2017-07-17] MEDS: INSULIN DETEMIR 100 UNITS/ML SQ SCH (08:37)
[2017-07-17] MEDS: ENOXAPARIN SODIUM 40 MG/0.4 ML PF SYRINGE SQ SCH (09:45)
[2017-07-17 12:42] LABS: GLUCOSE,POINT OF CARE 117 MG/DL (70-110)
[2017-07-17 15:06] VITALS: BP 115/78
[2017-07-17 17:08] LABS: GLUCOSE,POINT OF CARE 118 MG/DL (70-110)
[2017-07-17] MEDS: SENNA 187 MG TABLET PO SCH (20:17)
[2017-07-18 00:01] VITALS: BP 97/63
[2017-07-18 00:09] LABS: GLUCOSE,POINT OF CARE 115 MG/DL (70-110)
[2017-07-18 06:08] LABS: GLUCOSE,POINT OF CARE 120 MG/DL (70-110)
[2017-07-18 07:08] VITALS: BP 100/62
[2017-07-18] MEDS: ESOMEPRAZOLE MAG TRIHYDRATE 20 MG CAPSULE PO SCH (08:31)
[2017-07-18] MEDS: LOSARTAN POTASSIUM 25 MG TABLET PO SCH (08:32)
[2017-07-18] MEDS: CLOPIDOGREL BISULFATE 75 MG TABLET PO SCH (08:32)
[2017-07-18] MEDS: OMEGA-3/DHA/EPA/FISH OIL 500 MG CAPSULE PO SCH (08:32)
[2017-07-18] MEDS: ASPIRIN 81 MG CHEWABLE TABLET PO SCH (08:32)
[2017-07-18] MEDS: DOCUSATE SODIUM 250 MG CAPSULE PO SCH (08:32)
[2017-07-18] MEDS: ATORVASTATIN CALCIUM 40 MG TABLET PO SCH (08:32)
[2017-07-18] MEDS: INSULIN ASPART 100 UNITS/ML SQ SCH ×2 (08:36→12:44)
[2017-07-18] MEDS ORDERED: INSULIN DETEMIR 100 UNITS/ML SQ SCH (09:00)
[2017-07-18] MEDS ORDERED: INSU100V12 SQ (10:12)
[2017-07-18] MEDS ORDERED: OMEG-135 PO (10:12)
[2017-07-18] MEDS ORDERED: INSNOV SQ (10:12)
[2017-07-18] MEDS ORDERED: ASPI-1182 PO (10:12)
[2017-07-18] MEDS ORDERED: DOCU250C91 PO (10:17)
[2017-07-18] MEDS ORDERED: ESOM40CA54 PO (10:17)
[2017-07-18] MEDS ORDERED: CLOP75 PO (10:17)
[2017-07-18] MEDS ORDERED: ASPI81 PO (10:18)
[2017-07-19 00:38] LABS: GLUCOSE,POINT OF CARE 97 MG/DL (70-110)
== END 2017-07-18 13:05 | disposition home or self-care (01) | DRG 56 ==
LOC: 2WR 15:30
PROVIDERS: ADMIT Physical Medicine & Rehabilitation; ATTEND Physical Medicine & Rehabilitation
PROC: 3E0234Z Introduction of Serum, Toxoid and Vaccine into Muscle, Percutaneous Approach (ICD-10-PCS; principal; 2017-06-26)
DX: I69.351 Hemiplegia and hemiparesis following cerebral infarction affecting right dominant side (principal); I63.9 Cerebral infarction, unspecified; I77.74 Dissection of vertebral artery; I74.9 Embolism and thrombosis of unspecified artery; E11.65 Type 2 diabetes mellitus with hyperglycemia; I10 Essential (primary) hypertension; K21.9 Gastro-esophageal reflux disease without esophagitis; K59.00 Constipation, unspecified; Z79.02 Long term (current) use of antithrombotics/antiplatelets; Z79.82 Long term (current) use of aspirin; Z82.3 Family history of stroke; Z82.49 Family history of ischemic heart disease and other diseases of the circulatory system; Z83.3 Family history of diabetes mellitus; Z87.442 Personal history of urinary calculi; Z87.891 Personal history of nicotine dependence; F43.21 Adjustment disorder with depressed mood; R42 Dizziness and giddiness; M62.838 Other muscle spasm; Z23 Encounter for immunization
CPT/HCPCS: 70450; 82962; 83036; 87081; 87086; 90471; 92507; 92508; 92523; 92526; 93970; 97032; 97110; 97112; 97116; 97150; 97162; 97166; 97530; 97535; 99366; J1650; J1815